=== PATIENT | female | born 1965 | race Caucasian/White ===

== ENCOUNTER 2021-01-14 13:06 | Day surgery (SDC) | payer OTHER ==
[2021-01-14 10:06] VITALS: BMI 50.8
[2021-01-14] MEDS ORDERED: PROPOFOL 20 ML ONE ×4 (13:52)
[2021-01-14] MEDS ORDERED: LIDOCAINE HCL/PF 2% SDV 5ML VIAL ONE (13:52)
[2021-01-14 15:38] VITALS: TEMP 98
[2021-01-14 16:07] VITALS: BP 118/86; PULSE 66
== END 2021-01-14 16:19 | disposition home or self-care (01) ==
LOC: FASU-ENDO 13:06
PROVIDERS: ATTEND Internal Medicine Gastroenterology
PROC: 0DB98ZX Excision of Duodenum, Via Natural or Artificial Opening Endoscopic, Diagnostic (ICD-10-PCS; 2021-01-14)
PROC: 0DB68ZX Excision of Stomach, Via Natural or Artificial Opening Endoscopic, Diagnostic (ICD-10-PCS; 2021-01-14)
PROC: 0DBK8ZX Excision of Ascending Colon, Via Natural or Artificial Opening Endoscopic, Diagnostic (ICD-10-PCS; principal; 2021-01-14 14:53)
DX: Z86.011 Personal history of benign neoplasm of the brain (principal); Z80.0 Family history of malignant neoplasm of digestive organs; D12.2 Benign neoplasm of ascending colon; Z98.0 Intestinal bypass and anastomosis status; K57.30 Diverticulosis of large intestine without perforation or abscess without bleeding; K29.50 Unspecified chronic gastritis without bleeding; K29.80 Duodenitis without bleeding; R12 Heartburn